=== PATIENT | male | born 1995 | race Caucasian/White ===

== ENCOUNTER 2021-01-13 13:32 | Emergency (ER) | payer OTHER ==
[~2021-01-13] VITALS: Ht 162.6 cm; Wt 81.7 kg
[2021-01-13 14:37] LABS: HEMATOCRIT 39.7 % (42.0-52.0); HEMOGLOBIN 13.9 gm/dL (14.0-18.0); MCH 27.8 pg (26.0-34.0); MCV 79.6 fL (80.0-100.0); PLATELET COUNT 220 thou/uL (150-400); RBC 4.98 mil/uL (4.50-6.00); RDW 13.2 % (10.5-14.5)
[2021-01-13 14:50] LABS: CALCIUM 8.7 mg/dL (8.5-10.1); POTASSIUM 3.7 mmol/L (3.5-5.1)
[2021-01-13 14:57] LABS: ALBUMIN 3.4 g/dL (3.4-5.0); TOTAL BILIRUBIN 0.5 mg/dL (0.2-1.0); TOTAL PROTEIN 8.1 g/dL (6.4-8.2)
[2021-01-13 16:14] LABS: ABSOLUTE NEUTROPHILS 5.1 thou/uL (1.4-8.2); ANISOCYTOSIS 1+; POLYCHROMASIA 1+
[2021-01-13] MEDS ORDERED: MAGIC MOUTHWASH SW&SWALLOW (18:00)
[2021-01-14 06:06] LABS: HIV ANTIBODY Non Reactive (Non Reactive)
== END 2021-01-13 18:18 | disposition home or self-care (01) ==
LOC: ER 13:32
PROVIDERS: Physician Assistant
DX: J03.90 Acute tonsillitis, unspecified (principal); Z20.822 Contact with and (suspected) exposure to COVID-19